=== PATIENT | male | born 1990 | race Caucasian/White ===

== ENCOUNTER 2016-05-09 13:01 | Emergency (ER) | payer MEDICARE | END 2016-05-09 15:25 | disposition home or self-care (01) | LOC: ER 13:01 | DX: K29.70 Gastritis, unspecified, without bleeding (principal); K21.9 Gastro-esophageal reflux disease without esophagitis; R30.0 Dysuria; Z90.49 Acquired absence of other specified parts of digestive tract; Z79.899 Other long term (current) drug therapy; Z88.8 Allergy status to other drugs, medicaments and biological substances | CPT/HCPCS: 36415; 96361; 96374; 96375; J2550 ==

== ENCOUNTER 2016-05-12 14:25 | Emergency (ER) | payer MEDICARE | END 2016-05-12 18:32 | disposition home or self-care (01) | LOC: ER 14:25 | DX: R19.7 Diarrhea, unspecified (principal); R11.2 Nausea with vomiting, unspecified; Z79.899 Other long term (current) drug therapy; Z88.8 Allergy status to other drugs, medicaments and biological substances | CPT/HCPCS: 36415; 96361; 96374; 96375; Q9967 ==